=== PATIENT | female | born 1995 | race Caucasian/White ===

== ENCOUNTER 2021-10-24 22:52 | Emergency (ER) | payer OTHER ==
[~2021-10-24] VITALS: Ht 165.1 cm; Wt 108.9 kg
[~2021-10-24 22:52] MED LIST: BACTROBAN NASAL1 GM; DIFLUCAN150 MG PO; KEFLEX500 MG PO; MACROBID 100 M100 MG PO; ONDANSETRON ODT4 MG SL; PRENATAL FORMU1 EACH PO; REGLAN10 MG PO; SKELAXIN800 MG PO; VOLTAREN **OUT75 MG PO
[2021-10-24 23:49] LABS: BASOPHIL 0.2 % (0-2); EOSINOPHIL 1.9 % (0-5); HCT 41.6 % (37.0-47.0); HGB 14.6 g/dl (12.5-16.0); LYMPHOCYTE 51.8 % (15-48); MCH 32.3 pg (25.0-31.0); MCHC 35.1 g/dL (32.0-36.0); MONOCYTE 7.2 % (0-12); MPV 11.1 fL (6.0-9.5); NEUTROPHIL 38.6 % (41-80); NRBC 0; PLT 272 K/uL (150-400); RBC 4.52 M/uL (4.20-5.40); RDW 11.6 % (11.5-14.0); WBC 12.2 K/uL (4.0-10.5)
[2021-10-25 00:22] LABS: INFLUENZA A NAA NEGATIVE (NEGATIVE)
[2021-10-25 00:32] LABS: ALBUMIN 4.2 g/dL (3.4-5.0); BUN/CREAT RATIO (CALC) 14.3 RATIO; CREATININE 0.77 mg/dL (0.51-0.95); GLOBULIN (CALCULATION) 3.1 g/dL; POTASSIUM 3.2 mmol/L (3.5-5.1); TOTAL PROTEIN 7.3 g/dL (6.4-8.2)
[2021-10-25 00:43] LABS: CORONAVIRUS 2019 SARS-COV-2 POSITIVE (NEGATIVE)
[2021-10-25 03:02] LABS: BILIRUBIN NEGATIVE (NEGATIVE); BLOOD NEGATIVE Ery/uL (NEGATIVE); CLARITY CLEAR (CLEAR); COLOR YELLOW (YELLOW); GLUCOSE (U) NORMAL (NORMAL); LEUKOCYTES NEGATIVE Leu/uL (NEGATIVE); NITRITE NEGATIVE (NEGATIVE); PROTEIN NEGATIVE (NEGATIVE); UROBILINOGEN 0.2 mg/dL (0.2-1.0)
[2021-10-25 04:33] LABS: BILIRUBIN - TOTAL 0.4 mg/dL (0.2-1.0)
[2021-10-25 10:45] LABS: BASOPHIL 0.1 % (0-2); EOSINOPHIL 0.3 % (0-5); HGB 13.5 g/dl (12.5-16.0); LYMPHOCYTE 17.9 % (15-48); MCH 32.5 pg (25.0-31.0); MCHC 34.6 g/dL (32.0-36.0); MONOCYTE 6.3 % (0-12); MPV 10.8 fL (6.0-9.5); NEUTROPHIL 75.1 % (41-80); NRBC 0; PLT 225 K/uL (150-400); RBC 4.15 M/uL (4.20-5.40); RDW 11.9 % (11.5-14.0); WBC 12.4 K/uL (4.0-10.5)
[2021-10-25 11:06] LABS: ALBUMIN 3.8 g/dL (3.4-5.0); BILIRUBIN - TOTAL 0.5 mg/dL (0.2-1.0); BUN/CREAT RATIO (CALC) 17.9 RATIO; CREATININE 0.67 mg/dL (0.51-0.95); GLOBULIN (CALCULATION) 3.1 g/dL; POTASSIUM 4.1 mmol/L (3.5-5.1); TOTAL PROTEIN 6.9 g/dL (6.4-8.2)
[2021-10-25 14:10] LABS: AMYLASE 53 U/L (25-115); LIPASE 95 U/L (73-393)
== END 2021-10-25 17:20 | disposition other institution (70) ==
LOC: FER 22:52
PROVIDERS: Emergency Medicine; Internal Medicine
DX: N85.8 Other specified noninflammatory disorders of uterus (principal); U07.1 COVID-19; R74.8 Abnormal levels of other serum enzymes; Z28.310 Unvaccinated for COVID-19
CPT/HCPCS: 36415; 76705; 76830; 80053; 81003; 82150; 83605; 83690; 85025; 86304; J1170; J1885; J2405; J2550; J7030; Q9967; U0002